=== PATIENT | male | born 1935 | race Caucasian/White ===

== ENCOUNTER → 2016-07-06 | Outpatient (CLI) | payer MEDICARE, BC ==
[~2016-07-06] MED LIST: ALPHAG-P-0.1-15; ASPIRIN 81M81 MG/TA2 PO; CENTRUM1 TAB PO; CIALIS5 MG PO; FERROUS SU325 MG/TAB PO; FOLIC ACID PO; IBUPROFEN800 MG PO; LEVAQUIN 750MG750 M1 PO; MONODOX100 PO; MUCUS RELIEF400 M1 PO; PREDNISONE20 MG PO; PRILOSEC 20MG20 MG PO; PROAIR HFA0.09 MG/AC IH; VITAMIN C500 MG PO; XALATAN EYE DROPS OD; ZOCOR 20MG20 MG PO
[2016-07-06 10:33] LABS: BASO # 0.1 (0.0-0.2); BASO % 0.5 % (0.0-2.0); GRAN # 5.8 (1.4-6.5); GRAN % 57.6 % (42.2-75.2); HEMATOCRIT 43.3 % (42.0-52.0); HEMOGLOBIN 14.8 g/dl (13.5-18.0); LYMPH # 3.1 (1.2-3.4); LYMPH % 30.3 % (20.0-51.0); MEAN CELL VOLUME 97 fl (80.0-100.0); MEAN CORPUSCULAR HEMOGLOBIN 33 pg (27.0-31.0); MEAN CORPUSCULAR HGB CONC 34 g/dl (33.0-37.0); MEAN PLATELET VOLUME 10.7 fl (7.4-10.4); MONO # 1.1 (0.1-0.6); MONO % 11.2 % (1.7-9.3); PLATELET COUNT 186 K/mm3 (130-400); RED BLOOD COUNT 4.47 M/mm3 (4.20-5.60); REDCELL DISTRIBUTION WIDTH-CV 12.2 % (11.5-14.5); WHITE BLOOD COUNT 10.1 K/mm3 (4.8-10.8)
[2016-07-06 10:49] LABS: ERYTHROCYTE SEDIMENTATION RATE 5 mm/hr (0-30)
== END ==
LOC: COL.LAB 09:16
PROVIDERS: Nurse Practitioner
DX: Z96.651 Presence of right artificial knee joint (principal); Z47.89 Encounter for other orthopedic aftercare

== ENCOUNTER 2016-09-02 05:56 | Emergency (ER) | payer MEDICARE, BC ==
[2008-08-05 06:41] VITALS: BP 122/73
[~2016-09-02] VITALS: Ht 188 cm; Wt 95.5 kg
[2016-09-02 05:58] VITALS: TEMP 98
[2016-09-02 08:00] VITALS: BP 137/81; PULSE 80
== END 2016-09-02 08:06 | disposition home or self-care (01) ==
LOC: COL.ER 05:56
DX: N40.1 Benign prostatic hyperplasia with lower urinary tract symptoms (principal); R33.8 Other retention of urine; Z85.46 Personal history of malignant neoplasm of prostate; Z98.890 Other specified postprocedural states

== ENCOUNTER → 2017-07-28 | Outpatient (CLI) | payer MEDICARE, BC | LOC: COL.VAS 12:02 | DX: I65.23 Occlusion and stenosis of bilateral carotid arteries (principal); G43.109 Migraine with aura, not intractable, without status migrainosus; H53.9 Unspecified visual disturbance; R22.1 Localized swelling, mass and lump, neck ==

== ENCOUNTER → 2022-05-10 | Outpatient (CLI) | payer MEDICARE, BC ==
[~2022-05-10] MED LIST changes: +ADVIL200 MG PO; +B-121000 MCG PO; +GLUCOSAMINE & C1 CA2; +ISTALOL 2.5 ML2.5 ML OU; +LUTEIN20 M1 PO; +MAG-OX 400400 MG/TAB PO; +SYNTHROID0.075 MG/T PO; +TYLENOL 8 HR PO; +VITAMIN E1000 U/CAP PO
== END ==
LOC: COL.RAD 12:09
DX: M48.061 Spinal stenosis, lumbar region without neurogenic claudication (principal)

== ENCOUNTER 2023-02-08 08:52 | Emergency (ER) | payer MEDICARE, BC ==
[~2023-02-08] VITALS: Ht 188 cm; Wt 93.2 kg
[~2023-02-08 08:52] MED LIST changes: -ALPHAG-P-0.1-15; +ALPHAG-P-0.1-15 OS; -GLUCOSAMINE & C1 CA2; +GLUCOSAMINE & C1 CA2 PO
[2023-02-08 08:56] VITALS: TEMP 97.8
[2023-02-08 09:33] LABS: HEMATOCRIT 42.4 % (42.0-52.0); HEMOGLOBIN 13.9 g/dl (13.5-18.0); MEAN CELL VOLUME 100 fl (80.0-100.0); MEAN CORPUSCULAR HEMOGLOBIN 33 pg (27-31); MEAN CORPUSCULAR HGB CONC 33 g/dl (33.0-37.0); MEAN PLATELET VOLUME 9.7 fl (7.4-10.4); PLATELET COUNT 236 K/mm3 (130-400); RED BLOOD COUNT 4.24 M/mm3 (4.20-5.60); REDCELL DISTRIBUTION WIDTH-CV 13.2 % (11.5-14.5)
[2023-02-08 09:48] LABS: PROTHROMBIN TIME 11.3 SECONDS (9.7-12.8)
[2023-02-08 09:51] LABS: PARTIAL THROMBOPLASTIN TIME 29.8 SECONDS (26.0-37.0)
[2023-02-08 09:57] LABS: BAND 7 % (0-10); EOSINOPHIL 2 % (0-4); LYMPHOCYTE 12 % (20.0-51.0); NEUTROPHILS 67 % (42.0-75.2); PLATELET ESTIMATE NORMAL (NORMAL)
[2023-02-08 10:00] LABS: ALANINE AMINOTRANSFERASE 18 U/L (0-55); ALBUMIN 3.3 gm/dL (3.4-4.8); ALKALINE PHOSPHATASE 65 U/L (40-150); ANION GAP 11 mmol/L (7-16); AST,SGOT 15 U/L (5-34); BILIRUBIN,TOTAL 0.8 mg/dL (0.2-1.2); BLOOD UREA NITROGEN 14 mg/dL (8-26); CALCIUM 9.4 mg/dL (8.4-10.2); CARBON DIOXIDE 21 mmol/L (23-31); CHLORIDE 105 mmol/L (98-107); CREATININE, serum 1.18 mg/dL (0.72-1.25); GLUCOSE 138 mg/dL (70-99); POTASSIUM 3.7 mmol/L (3.5-4.5); SODIUM 137 mmol/L (136-145); TOTAL PROTEIN 6.4 gm/dL (6.2-8.1)
[2023-02-08 10:13] LABS: TROPONIN-I < 0.010 ng/mL (0.00-0.033)
[2023-02-08] MEDS ORDERED: PREDNISONE50 MG PO ×2 (12:51)
[2023-02-08 13:11] VITALS: BP 162/108; PULSE 105
[2023-02-10] MEDS ORDERED: MOTRIN 800800 MG/TAB PO (13:58)
[2023-02-10] MEDS ORDERED: ATROVENT NASAL15 ML NS (14:00)
[2023-02-10] MEDS ORDERED: SYSTANE COMPLET10 M1 OU (14:02)
[2023-02-10] MEDS ORDERED: ALLERGY MED (15:58)
[2023-02-12] MEDS ORDERED: IPRATROPIUM BROM3 M1 IH (09:59)
[2023-02-12] MEDS ORDERED: PRINIVIL10 MG PO (09:59)
[2023-02-12] MEDS ORDERED: MUCUS RELIEF400 M1 PO (10:00)
[2023-02-12] MEDS ORDERED: PREDNISONE50 MG PO (10:00)
[2023-02-12] MEDS ORDERED: NEB MC (10:02)
[2023-02-12] MEDS ORDERED: XANAX 0.5MG0.5 MG PO (10:04)
== END 2023-02-08 13:18 | disposition home or self-care (01) ==
LOC: COL.ER 08:52
PROVIDERS: Emergency Medicine
DX: J84.10 Pulmonary fibrosis, unspecified (principal)
CPT/HCPCS: J2930; Q9967